=== PATIENT | male | born 1960 | race Caucasian/White ===

== ENCOUNTER 2018-12-02 23:49 | Emergency (ER) | payer SELFPAY ==
[~2018-12-02] VITALS: Ht 188 cm; Wt 95.3 kg
[2018-12-02] MEDS ORDERED: blood pressure (23:58)
--- NOTE | 2018-12-03 00:02 | NUR ---
ED Nurse Note: Patient walk in c/o laceration to shaft of penis, asscess then found Pt's cyndie has a superfacical cut wound. Pt states he was drinking and awake in restroom by himself, then he found the wound. Pt is AO x 4times, VSS, on room air no distress. KIKOD seen Pt at bedside.
[2018-12-03 00:15] VITALS: BP 138/87
[2018-12-03] MEDS ORDERED: Tetanus/Diptheria/Pertussis IM ONE (00:15)
[2018-12-03] MEDS ORDERED: Lidocaine 1% MPF 10mg/ml 5ml INJ ONE (00:15)
[2018-12-03] MEDS ORDERED: Bacitracin Oint UD TOPIC ONE ×2 (01:29→01:30)
[2018-12-03] MEDS ORDERED: Bacitracin Opth Oint ONE (01:29)
--- NOTE | 2018-12-03 01:29 | Emergency Room Report ---
History of Present Illness General Chief Complaint: Laceration Source: Patient Present Illness HPI Patient had ingested a lot of wine. He passed out on the toilet. When he woke up he had a cut on his penis. Bleeding was controlled with local pressure. Not know when his last tetanus vaccination was. He denies any pain at this time. He has no difficulty urinating. Patient denies suicidal homicidal suicidal ideation. Also he denies unusual sexual practices. No fevers, chills, chest pain, palpitations, nausea, vomiting, diarrhea, dysuria , abdominal pain, shortness of breath, depression, visual changes, headache. Allergies: Coded Allergies: No Known Allergies (Unverified , 12/18/14) Patient History Past Medical History: see triage record Social History: Reports: alcohol use; Denies: smoking Social History Narrative Marketing Reviewed Nursing Documentation: PMH: Agreed; PSxH: Agreed Nursing Documentation-PMH Past Medical History: No History, Except For Hx Hypertension: Yes Hx COPD: Yes Review of Systems All Other Systems: negative except mentioned in HPI Physical Exam Vital Signs Date Time Temp Pulse Resp B/P (MAP) Pulse Ox O2 Delivery O2 Flow Rate FiO2 12/02/18 23:55 97.2 88 16 144/93 97 Room Air Sp02 EP Interpretation: reviewed, normal General Appearance: well appearing, no apparent distress, other - Alcohol on breath Head: normocephalic, atraumatic Eyes: bilateral eye PERRL, bilateral eye Scleral Injection ENT: hearing grossly normal, normal voice, moist mucus membranes Neck: full range of motion, supple Respiratory: no respiratory distress, speaking full sentences Cardiovascular #1: normal inspection Cardiovascular #2: 2+ radial (R) Gastrointestinal: normal inspection, normal bowel sounds, non tender Genitourinary: other - Laceration dorsum of penis through the skin but not deep with some bruising on either side Musculoskeletal: digits/nails normal, gait/station normal, normal range of motion Neurologic: alert, oriented x3, normal gait, other - Slurred speech Psychiatric: mood/affect normal Skin: laceration Procedures Laceration/Wound Repair Laceration/Wound Repair : Consent: Verbal Wound Location: other - Penis Wound's Depth, Shape: superficial Wound Length (cm): 3 Wound Explored: clean Irrigated w/ Saline (ccs): 20 Anesthesia: 1% Lidocaine Volume Anesthetic (ccs): 2 Wound Debrided: Wound Repaired With: sutures Suture Size/Type: 5:0, proline Layer Closure?: No Sterile Dressing Applied?: Yes Splint Applied?: No Patient Tolerated: Well Complications: None Medical Decision Making Diagnostic Impression: Primary Impression: Penile laceration Qualified Codes: S31.21XA - Laceration without foreign body of penis, initial encounter ER Course Patient presents with penile laceration. Tetanus is indicated. Sutures are indicated. The urethra was not involved and this is superficial to the deep structures in the penis. Antibiotics also indicated. See procedure note. Discussed treatment plan with patient. In addition discussed consideration for attending Alcoholics Anonymous meeting. Patient stable for outpatient observation and treatment.. Last Vital Signs Date Time Temp Pulse Resp B/P (MAP) Pulse Ox O2 Delivery O2 Flow Rate FiO2 12/03/18 01:38 97.6 67 16 138/87 100 Room Air Status: improved Disposition: HOME, SELF-CARE Condition: Improved Scripts Bacitracin (Bacitracin) 28.4 Gm Oint...g. 1 APPLIC TOPIC BID, #20 GM Prov: Nhan Hopper MD 12/03/18 Cephalexin* (KEFLEX*) 500 Mg Capsule 500 MG ORAL EVERY 6 HOURS, #28 CAP Prov: Nhan Hopper MD 12/03/18 Nhan Hopper MD Dec 03, 2018 01:29
[2018-12-03] MEDS ORDERED: Cephalexin 500mg cap ORAL ONE (01:30)
[2018-12-03] MEDS ORDERED: CEPHALEXIN500 MG ORAL (01:31)
[2018-12-03] MEDS ORDERED: BACITRACIN15 GM TOPIC (01:31)
[2018-12-03 01:38] VITALS: BP 138/87
--- NOTE | 2018-12-03 01:40 | NUR ---
ED Nurse Note: Pt cleared by health care Provider for discharge. DC instructions/prescription was given and explained to pt and verbalized understanding of teachings. All medical deviecs such as ID band removed. Pt is AAO x4, ambulatory and left with all personal belongings.
== END 2018-12-03 01:38 | disposition home or self-care (01) ==
LOC: EMR 12-03 00:20
DX: S31.21XA Laceration without foreign body of penis, initial encounter (principal); Z23 Encounter for immunization; I10 Essential (primary) hypertension; J44.9 Chronic obstructive pulmonary disease, unspecified; X58.XXXA Exposure to other specified factors, initial encounter; Y92.9 Unspecified place or not applicable
CPT/HCPCS: 90471; 90715; 99283

== ENCOUNTER 2018-12-09 10:30 | Emergency (ER) | payer OTHER ==
[~2018-12-09] VITALS: Ht 188 cm; Wt 97.5 kg
[~2018-12-09 10:30] MED LIST: BACITRACIN15 GM TOPIC; CEPHALEXIN500 MG ORAL; blood pressure
[2018-12-09] MEDS ORDERED: AVAPRO75 MG ORAL (10:38)
[2018-12-09 10:40] VITALS: BP 125/84
--- NOTE | 2018-12-09 11:03 | Emergency Room Report ---
History of Present Illness General Chief Complaint: Wound Recheck/Suture Removal Source: Patient Present Illness HPI Patient present for reevaluation of the laceration of his dorsal penis which was repaired here Patient denies any bleeding or discharge from the area feels that the area has been healing well denies any pain denies any redness Allergies: Coded Allergies: No Known Allergies (Unverified , 12/09/18) Patient History Past Medical History: see triage record Pertinent Family History: none Reviewed Nursing Documentation: PMH: Agreed; PSxH: Agreed Nursing Documentation-PMH Past Medical History: No History, Except For Hx Hypertension: Yes Hx COPD: Yes Review of Systems All Other Systems: negative except mentioned in HPI Physical Exam Vital Signs Date Time Temp Pulse Resp B/P (MAP) Pulse Ox O2 Delivery O2 Flow Rate FiO2 12/09/18 10:34 97.9 79 16 125/84 96 Room Air Sp02 EP Interpretation: reviewed, normal General Appearance: well appearing, no apparent distress Head: normocephalic, atraumatic Eyes: bilateral eye PERRL, bilateral eye EOMI ENT: normal pharynx Neck: supple Respiratory: no retraction, no accessory muscle use Cardiovascular #1: regular rate, rhythm Genitourinary: other - Sutures in place dorsally, appears to be healing appropriately no erythema or obvious dehiscence Neurologic: alert, oriented x3 Skin: other - As above Lymphatic: no adenopathy Medical Decision Making Diagnostic Impression: Primary Impression: Encounter for wound re-check Additional Impression: Encounter for removal of sutures ER Course After further evaluation initially 3 of the sutures were removed using the suture removal kit in the appropriate fashion The area in question appears to be still undergoing healing process I feel that removal of any further sutures will need to possible dehiscence therefore the other sutures are left in place and patient will have repeat presentation for removal in the next 5-7 days Patient is also able to follow-up with primary physician if able to do so Last Vital Signs Date Time Temp Pulse Resp B/P (MAP) Pulse Ox O2 Delivery O2 Flow Rate FiO2 12/09/18 10:40 97.9 79 16 125/84 96 Room Air Status: improved Disposition: HOME, SELF-CARE Condition: Improved Referrals: [facility],REFERRING (PCP) Additional Instructions: Patient is provided with the discharge instructions notified to follow up with primary doctor in the next 2-3 days otherwise return to the er with any worsening symptoms. Please note that this report is being documented using DRAGON technology. This can lead to erroneous entry secondary to incorrect interpretation by the dictating instrument. Taj Quigley DO Dec 09, 2018 11:03
[2018-12-09 11:18] VITALS: BP 131/81
== END 2018-12-09 11:15 | disposition home or self-care (01) ==
LOC: EMR 10:43
DX: S31.21XA Laceration without foreign body of penis, initial encounter (principal); Z48.02 Encounter for removal of sutures; I10 Essential (primary) hypertension; J44.9 Chronic obstructive pulmonary disease, unspecified; X58.XXXA Exposure to other specified factors, initial encounter; Y92.9 Unspecified place or not applicable
CPT/HCPCS: 99281

== ENCOUNTER 2018-12-14 11:03 | Emergency (ER) | payer OTHER ==
[~2018-12-14] VITALS: Ht 188 cm; Wt 97.5 kg
[~2018-12-14 11:03] MED LIST changes: +AVAPRO75 MG ORAL
--- NOTE | 2018-12-14 12:08 | Emergency Room Report ---
History of Present Illness General Chief Complaint: Wound Recheck/Suture Removal Source: Medical Record Present Illness HPI Patient is a 58-year-old male who presented after recent suture placement. Patient denied any complaints. He stated that would have been healing well. Patient had partial removal of sutures but had some continued sutures. Patient had laceration repair 13 days ago. Patient denies any complaints. Allergies: Coded Allergies: No Known Allergies (Unverified , 12/09/18) Patient History Past Medical History: see triage record Reviewed Nursing Documentation: PMH: Agreed; PSxH: Agreed Nursing Documentation-PMH Past Medical History: No History, Except For Hx Hypertension: Yes Hx COPD: Yes Review of Systems All Other Systems: negative except mentioned in HPI Physical Exam Vital Signs Date Time Temp Pulse Resp B/P (MAP) Pulse Ox O2 Delivery O2 Flow Rate FiO2 12/14/18 11:19 98.8 79 16 96 Room Air General Appearance: well appearing, no apparent distress, alert, GCS 15 Head: normocephalic, atraumatic ENT: hearing grossly normal, normal voice Neck: full range of motion, supple Respiratory: no respiratory distress, speaking full sentences Genitourinary: other - sutures well healed Neurologic: normal gait Psychiatric: mood/affect normal Medical Decision Making Diagnostic Impression: Primary Impression: Visit for suture removal ER Course Patient presented for wound check. Differential diagnosis included was not limited to infected wound, nonhealed wound, neuroma, healed wound. Suture removal was performed. Patient tolerated this well. Last Vital Signs Date Time Temp Pulse Resp B/P (MAP) Pulse Ox O2 Delivery O2 Flow Rate FiO2 12/14/18 11:19 98.8 79 16 96 Room Air Status: improved Disposition: HOME, SELF-CARE Condition: Stable Patient Instructions: Suture Removal, Care After Jasbir Horowitz MD December 14, 2018 12:08
--- NOTE | 2018-12-14 14:00 | NUR ---
ED Nurse Note:sutures were removed by ER MD, pt. received d/c instructions and left ER with steady gait
[2018-12-14 15:04] VITALS: BP 127/86
[2018-12-14 18:15] VITALS: BP 127/86
== END 2018-12-14 12:20 | disposition home or self-care (01) ==
LOC: EMR 11:51
DX: Z48.02 Encounter for removal of sutures (principal)
CPT/HCPCS: 99281

== ENCOUNTER 2020-07-09 00:55 | Emergency (ER) | payer OTHER ==
[~2020-07-09] VITALS: Ht 188 cm; Wt 98.9 kg
[2020-07-09 01:15] VITALS: BP 133/92
--- NOTE | 2020-07-09 01:15 | NUR ---
ED Nurse Note: Patient connected to surveillance monitor. Vital signs are stable. Safety measures met.
--- NOTE | 2020-07-09 01:15 | NUR ---
ED Nurse Note: Patient walked into ED for c/o chest pain that has been intermittent for the past three days. He describes the CP as tight in nature. He denies any SOB, cough, fever, chills. He is breathing normal and unlabored. AAOX4. He denies any heavy lifting or injury to chest area. Patient states he recently had an EKG done at routine PCP visit 10 days ago and EKG was normal. He has not had this type of chest tightness in the past.
--- NOTE | 2020-07-09 01:25 | Emergency Room Report ---
History of Present Illness General Chief Complaint: Chest Pain Source: Patient Present Illness HPI Disclaimer: Please note that this report is being documented using [employer] technology. This can lead to erroneous entry secondary to incorrect interpretation by the dictating instrument. HPI: 59-year-old male history of hypertension, hyperlipidemia, anxiety presents for evaluation of chest pain. Patient has been experiencing intermittent tight chest discomfort in the mid chest sometimes rating to the right and left side for the past 3 days. Not associated with exercise or rest. Took clonidine prior to arrival without effect. Denies shortness of breath, cough, congestion, fever, chills. Tested negative for COVID-19 4 days ago. Recent chest x-ray and EKG for surgical clearance by his PMD last week which were reportedly unremarkable. Last stress test and echo were over 10 years ago. Does not smoke. No change in exercise tolerance. The patient continues to ride over 30 miles a day on his bicycle without associated chest pain or shortness of breath. No exacerbating or relieving factors noted but the patient does state that the chest pain is positional sometimes brought on by bending and twisting motions. Took Pepto-Bismol several hours ago with no change. 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 EOMI. Cardiovascular: RRR. S1 and S2 normal. No murmur appreciated Resp: Normal work of breathing. No cough, wheezing or crackles appreciated Abdomen: Abdomen is soft, nondistended. Nontender Skin: Intact. No abrasions, laceration or rash over the exposed skin MSK: Normal tone and bulk. Moving all extremities. No obvious deformity. Neuro: Awake and alert. Mentating appropriately. Medical Decision Making Diagnostic Impression: Primary Impression: Chest pain ER Course This 59-year-old male presenting for evaluation of chest pain. Differential includes was not limited to arrhythmia, ACS, angina, bronchitis, pneumonia, CHF, GERD, esophagitis, among others. EKG is nonischemic. Patient given aspirin and nitroglycerin. Chest x-ray unremarkable. Troponin negative. Other labs unremarkable. Patient's heart score is 3 and stable for outpatient follow-up. He rides over 30 miles a day on his bicycle without associated chest pain or shortness of breath. Patient was given a GI cocktail with some improvement in his symptoms. May be GERD related. Given the positional and reproducible nature of his chest pain as well as no change in his exercise tolerance I feel the patient is stable for further work-up on an outpatient basis with his PMD but do think that he would benefit from further testing. He understands and agrees with this treatment plan will be discharged. Heart score: History: 1 EC Age: 1 Risk factors: 1 Initial troponin: 0 Total: 3 Laboratory Tests Test 07/09/20 01:15 White Blood Count 6.5 K/UL (4.8-10.8) Red Blood Count 4.57 M/UL (4.70-6.10) L Hemoglobin 15.2 G/DL (14.2-18.0) Hematocrit 44.7 % (42.0-52.0) Mean Corpuscular Volume 98 FL (80-99) Mean Corpuscular Hemoglobin 33.2 PG (27.0-31.0) H Mean Corpuscular Hemoglobin Concent 34.0 G/DL (32.0-36.0) Red Cell Distribution Width 11.5 % (11.6-14.8) L Platelet Count 386 K/UL (150-450) Mean Platelet Volume 6.1 FL (6.5-10.1) L Neutrophils (%) (Auto) 52.1 % (45.0-75.0) Lymphocytes (%) (Auto) 30.1 % (20.0-45.0) Monocytes (%) (Auto) 12.8 % (1.0-10.0) H Eosinophils (%) (Auto) 3.4 % (0.0-3.0) H Basophils (%) (Auto) 1.5 % (0.0-2.0) Sodium Level 139 MMOL/L (136-145) Potassium Level 3.9 MMOL/L (3.5-5.1) Chloride Level 104 MMOL/L (98-107) Carbon Dioxide Level 27 MMOL/L (21-32) Anion Gap 8 mmol/L (5-15) Blood Urea Nitrogen 16 mg/dL (7-18) Creatinine 1.1 MG/DL (0.55-1.30) Estimated Glomerular Filtration Rate > 60 mL/min (>60) Glucose Level 96 MG/DL (74-106) Calcium Level 8.6 MG/DL (8.5-10.1) Total Bilirubin 0.4 MG/DL (0.2-1.0) Aspartate Amino Transferase (AST) 18 U/L (15-37) Alanine Aminotransferase (ALT) 36 U/L (12-78) Alkaline Phosphatase 76 U/L (46-116) Troponin I 0.000 ng/mL (0.000-0.056) Pro-B-Type Natriuretic Peptide 42 pg/mL (0-125) Total Protein 7.6 G/DL (6.4-8.2) Albumin 3.9 G/DL (3.4-5.0) Globulin 3.7 g/dL Albumin/Globulin Ratio 1.1 (1.0-2.7) EKG Diagnostic Results Troponin ordered: Yes When was troponin ordered?: Jul 09, 2020 EKG Time: 01:12 Rate: normal Rhythm: NSR ST Segments: no acute changes Other Impression Sinus rhythm, normal axis, normal intervals, no ST segment changes. ASA given to the pt in ED: Yes Rhythm Strip Diag. Results Rhythm Strip Time: 01:12 EP Interpretation: yes Rate: 70s Rhythm: NSR, no PVC's, no ectopy Chest X-Ray Diagnostic Results Chest X-Ray Diagnostic Results : Chest X-Ray Ordered: Yes # of Views/Limited/Complete: 1 View Indication: Chest Pain EP Interpretation: Yes Interpretation: no consolidation, no effusion, no pneumothorax, other - Lynx device and abdomen Impression: No acute disease Electronically Signed by: Electronically signed by Dr. Ivan Bravo MD Last Vital Signs Date Time Temp Pulse Resp B/P (MAP) Pulse Ox O2 Delivery O2 Flow Rate FiO2 07/09/20 00:55 97.2 82 18 158/100 (119) 96 Room Air Disposition: HOME, SELF-CARE Condition: Stable Referrals: Nghia Lind MD (PCP) Ivan Bravo MD Jul 09, 2020 01:25
[2020-07-09 01:33] LABS: BASOPHILS % (AUTO) 1.5 % (0.0-2.0); EOSINOPHILS % (AUTO) 3.4 % (0.0-3.0); HEMATOCRIT 44.7 % (42.0-52.0); HEMOGLOBIN 15.2 G/DL (14.2-18.0); LYMPHOCYTES % (AUTO) 30.1 % (20.0-45.0); MEAN CORPUSCULAR VOLUME 98 FL (80-99); MONOCYTES % (AUTO) 12.8 % (1.0-10.0); NEUTROPHILS % (AUTO) 52.1 % (45.0-75.0); PLATELET COUNT 386 K/UL (150-450); RED BLOOD COUNT 4.57 M/UL (4.70-6.10); RED CELL DISTRIBUTION WIDTH 11.5 % (11.6-14.8); WHITE BLOOD COUNT 6.5 K/UL (4.8-10.8)
[2020-07-09 01:42] LABS: ANION GAP 8 mmol/L (5-15); BLOOD UREA NITROGEN 16 mg/dL (7-18); CALCIUM 8.6 MG/DL (8.5-10.1); CARBON DIOXIDE 27 MMOL/L (21-32); CHLORIDE 104 MMOL/L (98-107); CREATININE 1.1 MG/DL (0.55-1.30); POTASSIUM 3.9 MMOL/L (3.5-5.1); SODIUM 139 MMOL/L (136-145)
[2020-07-09] MEDS ORDERED: Nitroglycerin Subl 0.4mg tab SL PRN (01:45)
[2020-07-09] MEDS ORDERED: Aspirin Baby 81mg ORAL ONE (01:45)
[2020-07-09 01:53] LABS: ALANINE AMINOTRANSFERASE 36 U/L (12-78); ALBUMIN 3.9 G/DL (3.4-5.0); ALBUMIN/GLOBULIN RATIO 1.1 (1.0-2.7); ALKALINE PHOSPHATASE 76 U/L (46-116); ASPARTATE AMINO TRANSFERASE 18 U/L (15-37); BILIRUBIN,TOTAL 0.4 MG/DL (0.2-1.0)
--- NOTE | 2020-07-09 01:55 | NUR ---
ED Nurse Note: Patient got headache after receiving Nitro. MD made aware. Explained to patient that headache is a side effect of nitro. Patient is ok with tylenol to control headache.
[2020-07-09] MEDS ORDERED: Mylanta II UD 30ml ORAL ONE (02:15)
[2020-07-09] MEDS ORDERED: Dicyclomine HCl 10mg/5ml oral soln ORAL ONE (02:15)
[2020-07-09] MEDS ORDERED: Lidocaine 2% Visc 15ml soln ORAL ONE (02:15)
--- NOTE | 2020-07-09 02:25 | NUR ---
ED Nurse Note: MD speaking with patient. He states he feels better at this time. Patient was very concerned with risk for SC.
[2020-07-09 02:34] VITALS: BP 128/88
--- NOTE | 2020-07-09 02:34 | NUR ---
ER DISCHARGE NOTE: Patient is cleared to be discharged per ERMD, pt is aox4, on room air, with stable vital signs. pt was given dc and prescription instructions, pt was able to verbalize understanding, pt id band and iv site removed without complications. pt is able to ambulate with steady gait. pt took all belongings.
--- NOTE | 2020-07-09 12:50 | Cardiology Report ---
APPROVED REPORT EKG Measurement Heart [id number] <Conclusion> Normal sinus rhythm Normal ECG
--- NOTE | 2020-07-09 17:34 | Diagnostic Imaging Report ---
Indication: Chest pain Technique: One view of the chest Comparison: 12/18/2014 Findings: Lungs and pleural spaces are clear. Heart size is normal. No significant change Impression: No acute process
== END 2020-07-09 02:34 | disposition home or self-care (01) ==
LOC: EMR 01:15
DX: R07.9 Chest pain, unspecified (principal); Z91.013 Allergy to seafood; I10 Essential (primary) hypertension; J44.9 Chronic obstructive pulmonary disease, unspecified
CPT/HCPCS: 36415; 71045; 80053; 83880; 84484; 85025; 93005; 99284